=== PATIENT | male | born 1995 | race African-American/Black ===

== ENCOUNTER 2024-07-26 17:17 | Emergency (ER) | payer OTHER ==
[~2024-07-26] VITALS: Ht 170.2 cm; Wt 81.6 kg
[2024-07-26 18:23] VITALS: BP 158/95; TEMP 98.2; O2SAT 99
== END 2024-07-26 18:24 ==
LOC: ER 17:33
DX: T75.4XXA Electrocution, initial encounter (principal); R01.1 Cardiac murmur, unspecified; Z65.3 Problems related to other legal circumstances; W86.8XXA Exposure to other electric current, initial encounter; Y93.89 Activity, other specified; Y92.89 Other specified places as the place of occurrence of the external cause; Y99.8 Other external cause status